=== PATIENT | male | born 1980 | race Caucasian/White ===

== ENCOUNTER → 2017-03-20 | Outpatient (CLI) | payer OTHER | LOC: BMCIMAGING 10:10 | PROVIDERS: ATTEND Family Medicine | DX: M79.671 Pain in right foot (principal); M20.11 Hallux valgus (acquired), right foot ==

== ENCOUNTER 2017-09-20 05:30 | Emergency (ER) | payer SELFPAY ==
[2017-09-20 05:42] VITALS: BP 147/88; PULSE 60; RESP 16; TEMP 97.7; O2SAT 95
[2017-09-20] MEDS ORDERED: FLUORESCEIN SODIUM 1 MG STRIP OP ONE (05:45)
[2017-09-20] MEDS ORDERED: PROPARACAINE 0.5% 15 ML OPHT DROP ONE (05:45)
[2017-09-20] MEDS ORDERED: OFLOXACIN 0.3% SOLN PREPACK OPHT.BTL TAKEHOME ONE (06:09)
--- NOTE | 2017-09-20 06:12 | EDPHY ---
H & P Stated Complaint: c/o R eye irritation while wearing contacts since yesterday Time Seen by Provider: 09/20/17 05:43 HPI/ROS: Chief Complaint: Right eye irritation HPI: 29-year-old male contact lens wear put his contacts in yesterday morning. He began feeling irritation during the morning and removed it per. Is over the course today is irritation increased. He did look in did remove an eyelash prominent but has continued to have worsening irritation to. No blurry vision. Has had some discharge from that eye. ROS: 10 point Review of Systems is negative except as noted in the HPI. PMH: None Social History: No smoking, no alcohol, no recreational drug use Family History: non-contributory Physical Exam: General: Awake, alert, no acute distress Eye Exam Visual Acuity: See nursing note EOM: Intact OU Visual Elder: Intact OU Pupil: Equal, round and reactive to light and accomodation OU External: Lids, lashes and margins normal OU Slit Lamp; right eye significant conjunctival injection Iris normal, significant right-sided corneal injection, Anterior chambers clear without cells or flare, no hyphema, normal angles Fluorosceine exam: Right eye significant for seen uptake with an a rounded ulceration in the 10:00 with some stippling. - Personal History Current Tetanus Diphtheria and Acellular Pertussis (TDAP): No - Medical/Surgical History Hx Asthma: No Hx Chronic Respiratory Disease: No Hx Diabetes: No Hx Cardiac Disease: No Hx Renal Disease: No Hx Cirrhosis: No Hx Alcoholism: No Hx HIV/AIDS: No Hx Splenectomy or Spleen Trauma: No Other PMH: none - Social History Smoking Status: Current some day smoker Constitutional: Initial Vital Signs Temperature (C) 36.5 C 09/20/17 05:37 Heart Rate 60 09/20/17 05:37 Respiratory Rate 16 09/20/17 05:37 Blood Pressure 147/88 H 09/20/17 05:37 O2 Sat (%) 95 09/20/17 05:37 O2 Delivery Mode Room Air Allergies/Adverse Reactions: No Known Allergies Allergy (Unverified 09/20/17 05:42) Home Medications: Medication Instructions Recorded NK [No Known Home Meds] 09/20/17 Medical Decision Making ED Course/Re-evaluation: 37-year-old male with corneal abrasion and keratitis in likely coronal ulceration. He has a contact lens wearer. Will start him on Ocuflox. I have referred him to follow up with Ophthalmology later today. He can also use diluted proparacaine every 30 min as needed for pain. Departure - Departure Disposition: Home, Routine, Self-Care Clinical Impression: Corneal abrasion, Acute conjunctivitis of right eye Condition: Good Instructions: Corneal Abrasion (ED), Corneal Ulcer (ED), Keratitis (ED) Additional Instructions: Apply antibiotic eyedrops every 2-3 hours while awake. Follow up with Ophthalmology later this morning. Referrals: Arturo Diego MD [Medical Doctor] - As per Instructions
== END 2017-09-20 06:29 | disposition home or self-care (01) ==
DX: H18.821 Corneal disorder due to contact lens, right eye (principal); F17.200 Nicotine dependence, unspecified, uncomplicated